=== PATIENT | female | born 1955 | race Caucasian/White ===

== ENCOUNTER 2018-10-01 10:34 | Outpatient (CLI) | payer OTHER ==
[2014-08-08 11:21] VITALS: BP 125/61
[2018-10-01 10:59] LABS: BASOPHILS % 0.5 % (0.0-1.5); NEUTROPHILS # 2.8 # k/uL (1.4-7.7)
[2018-10-01 11:11] LABS: eGFR (Non-African) > 60
--- NOTE | 2018-10-01 14:19 | Diagnostic Imaging Report ---
MARY ANN DESHPANDE [facility] [address] [facility] [address] [address] Report Submission Date: Oct 01, 2018 11:25:55 AM CDT Patient Study Name: KIARRA PATEL Date: Oct 01, 2018 10:51:30 AM CDT Modality Type: DX Gender: F Description: ANKLE 3 VIEWS OR MORE : 55 Institution: [facility] Physician: MARY ANN DESHPANDE Examination: Plain film right ankle History: ANKLE CELLULITIS OVER PREVIOUS ORIF Comparison exam: None provided. Findings: 3 views of the ankle demonstrates fixation hardware involving the distal tibia and fibula. Osteopenia. Lateral soft tissue swelling with what appears to be air within the subcutaneous region. No joint effusion. Impression: Fracture fixation hardware in place. Lateral soft tissue fullness with what appears to be air within the subcutaneous region - highly suspect infectious etiology with possible gas forming organism. Correlate clinically. Electronically signed on Oct 01, 2018 11:25:55 AM CDT by: Viktor SKY
== END 2018-10-01 10:36 ==
LOC: LAB 10:34
PROVIDERS: ATTEND Family Medicine
DX: L03.119 Cellulitis of unspecified part of limb (principal)
CPT/HCPCS: 36415; 73610; 80053; 85025

== ENCOUNTER 2018-10-01 15:41 | Outpatient (CLI) | payer OTHER ==
[2014-08-08 11:21] VITALS: BP 125/61
== END 2018-10-01 15:43 ==
LOC: LABRHC 15:41
PROVIDERS: ATTEND Family Medicine
DX: Z11.2 Encounter for screening for other bacterial diseases (principal)
CPT/HCPCS: 87070

== ENCOUNTER 2018-11-26 12:35 | Emergency (ER) | payer OTHER ==
[2018-11-26 13:06] LABS: BASOPHILS % 0.4 % (0.0-1.5); NEUTROPHILS # 5.4 # k/uL (1.4-7.7)
[2018-11-26 13:21] LABS: eGFR (Non-African) > 60
--- NOTE | 2018-11-26 13:23 | ED Physician Documentation ---
Dyspnea - HISTORIAN Historian: patient - HPI Stated Complaint: SOA/Weakness Chief Complaint: Dyspnea Additional Information: Patient is a 63-year-old female who presents to the ER via w/c with spouse. Patient has not felt well for quite awhile. She states that she was hospitalized at the [facility] from October 01- October 14 for complications from a right ankle surgery. She has been having increased shortness of breath since the 2nd week of November- she had PCP refill her inhaler and had refused to be seen in the ER at that time. She states that she has become increasingly weak and short of breath- it takes her longer to complete her ADLs due to SOA. She sleeps in a medical bed in the living because she cannot lay flat. She has increased swelling to her lower extremities. Her appetite is poor. Onset: days ago Duration: continues in ED Initiating Event: other (chronic illness) Severity: moderate Exacerbated By: change in position, exertion, laying flat Associated Symptoms: chills, fever, light-headedness - ROS CONST: recent illness, weakness EYES/ENT: none GI/: vomiting (describes more as mucous), nausea NEURO/PSYCH: denies: headache MS/SKIN/LYMPH: none - PAST HX Lung Disease: bronchitis, other (tobacco use) Cardiac Disease: other (hypercholestremia) PE Risk Factors: leg swelling Surgeries/Procedures: other (tonsils & multiple right ankle) Other History: other (hypothyroid, depression, anxiety) Immunizations: UTD Allergies/Adverse Reactions: Allergies Allergy/AdvReac Type Severity Reaction Status Date / Time acetaminophen [From Percocet] Allergy Severe Rash Verified 11/26/18 12:46 oxycodone HCl [From Percocet] Allergy Intermediate Vomiting Verified 11/26/18 12:46 Penicillins Allergy Intermediate Tongue Verified 11/26/18 12:46 Swelling erythromycin base Allergy Verified 11/26/18 12:46 [Erythromycin Base] codeine [Codeine] AdvReac Intermediate Vomiting Verified 11/26/18 12:46 - SOCIAL HX Smoking History: less than 1 pack/day Alcohol Use: none Drug Use: none - FAMILY HX Family History: none - VITAL SIGNS Vital Signs: Vital Signs Temp Pulse Resp BP Pulse Ox 97.7 F 112 H 35 H 168/97 98 11/26/18 12:35 11/26/18 13:17 11/26/18 12:35 11/26/18 12:35 11/26/18 13:17 - REVIEWED ASSESSMENTS Nursing Assessment Reviewed: Yes Vitals Reviewed: Yes Progress - Progress Progress: 13:45 Spoke with patient in regards to labs; elevated troponin and BNP- we will arrange transfer to [facility] 13:50 Spoke with patient PCP- he agrees with transfer for Cardiology 14:[address] Scott with Cardiology and they will accept. - EKG/XRAY/CT EKG: no ST T wave changes (ST at 114) ED Results Lab/Radiology - Lab Results Lab Results: Lab Results 11/26/18 12:47 WBC 7.80 K/ul K/ul (4.00-12.00) RBC 3.26 M/ul L M/ul (3.90-5.20) Hgb 9.6 g/dL L g/dL (11.5-16.0) Hct 29.3 % L % (34.5-46.5) MCV 90.0 fl fl (80.0-100.0) MCH 29.4 pg pg (28.0-34.0) MCHC 32.7 g/dL g/dL (30.0-36.0) RDW 13.1 % % (11.3-14.3) Plt Count 408 K/mm3 H K/mm3 (130-400) Neut % (Auto) 69.0 % % (39.0-79.0) Lymph % (Auto) 21.5 % % (16.0-50.0) [place] % (Auto) 4.2 % % (0.0-11.0) Eos % (Auto) 4.9 % % (0.0-6.8) Baso % (Auto) 0.4 % % (0.0-1.5) Neut # (Auto) 5.4 # k/uL # k/uL (1.4-7.7) Lymph # (Auto) 1.7 # k/uL # k/uL (0.6-4.0) [place] # (Auto) 0.3 # k/uL # k/uL (0.0-0.9) Eos # (Auto) 0.4 # k/uL # k/uL (0.0-0.6) Baso # (Auto) 0.0 # k/uL # k/uL (0.0-0.5) - Radiology Radiology Impressions: Examination: PA and lateral chest. History: Evaluate lung fortune. Comparison exam: 01 October 2012 Findings: PA and lateral views of the chest demonstrates a prominent cardiac silhouette. Tortuous aorta. Diffuse parenchymal infiltrates. No definite costophrenic margin or posterior sulci blunting. Osseous degenerative changes. Impression: Diffuse bilateral parenchymal patchy infiltrates. Electronically signed on Nov 26, 2018 1:53:54 PM CDT by: Viktor Neville - Orders Orders: ED Orders Category Date Time Status Continuous EKG monitoring Q30M Care 11/26/18 12:47 Active Continuous Pulse Oximetry Q30M Care 11/26/18 12:[address] IV Lock 1T Care 11/26/18 12:47 Active CBC/PLATELET/DIFF Routine Lab 11/26/18 12:47 Received CKMB Stat Lab 11/26/18 Ordered CMP Routine Lab 11/26/18 12:47 Received CREATINE KINASE Routine Lab 11/26/18 12:47 Received D DIMER Stat Lab 11/26/18 Ordered NTBNP Stat Lab 11/26/18 Ordered TROPONIN I Stat Lab 11/26/18 Ordered Oxygen Daily Oxygen 11/26/18 13:00 Ordered EKG WITH COMPARISON Stat Ther 11/26/18 12:47 Ordered Dyspnea Physical Exam - EXAM General Appearance: moderate distress EENT: eye inspection normal, ENT inspection normal, dry mucous membranes Neck: nml inspection Respiratory: accessory muscle use, rales (bibasilar) CVS: pulses full, tachycardia Abdomen: non-tender Skin: pallor, warm, dry Extremities: edema Neuro/Psych: oriented x3, CN's nml as tested, motor nml, sensation nml Discharge Clincal Impression: Congestive heart failure, Elevated troponin, Non-STEMI (non-ST elevated myocardial infarction) Referrals: Elsy Faulkner MD [Primary Care Provider] - 2 Days Additional Instructions: Patient transferring to the [facility] Condition: Fair Disposition: 02 XFER SHT-TRM HOSP Decision to Admit: NO Decision Time: 14:48
[2018-11-26] MEDS ORDERED: FUROSEMIDE 40 MG/4 ML VIAL IVP ONE (13:44)
--- NOTE | 2018-11-26 14:00 | Diagnostic Imaging Report ---
CU[facility] SWAN ED [facility] [address] [facility] [address] [address] Report Submission Date: Nov 26, 2018 1:53:54 PM CDT Patient Study Name: KIARRA PATEL Date: Nov 26, 2018 1:16:58 PM CDT Modality Type: DX Gender: F Description: CHEST 2VIEW : 55 Institution: [facility] Physician: CUONG SWAN ED Examination: PA and lateral chest. History: Evaluate lung fortune. Comparison exam: 01 October 2012 Findings: PA and lateral views of the chest demonstrates a prominent cardiac silhouette. Tortuous aorta. Diffuse parenchymal infiltrates. No definite costophrenic margin or posterior sulci blunting. Osseous degenerative changes. Impression: Diffuse bilateral parenchymal patchy infiltrates. Electronically signed on Nov 26, 2018 1:53:54 PM CDT by: Viktor SKY
[2018-11-26 14:59] VITALS: BP 151/95
== END 2018-11-26 14:50 | disposition short-term general hospital (02) ==
LOC: ED 12:35
DX: I21.4 Non-ST elevation (NSTEMI) myocardial infarction (principal); I50.9 Heart failure, unspecified
CPT/HCPCS: 71046; 80053; 82550; 82553; 83880; 84484; 85025; 85379; 96374; 99282; 99284; J1940; S1016